=== PATIENT | female | born 2000 | race Hispanic/Latino ===

== ENCOUNTER → 2018-09-25 | Outpatient (CLI) | payer BC ==
--- NOTE | 2018-09-25 15:55 | REP ---
Left ankle four views: Mineralization and joint spaces are normal. There is no fracture or dislocation. There is a small accessory ossicle at the tip of the fibula. Impression: Essentially negative left ankle. Electronically Signed by Gunnar Hill MD 09/25/2018 12:21 P
== END ==
LOC: M WUC 12:08
PROVIDERS: ATTEND Physician Assistant
DX: M25.572 Pain in left ankle and joints of left foot (principal)